=== PATIENT | male | born 1965 | race Hispanic/Latino ===

== ENCOUNTER 2022-10-22 06:46 | Day surgery (SDC) | payer BC ==
[2022-10-20 15:24] LABS: Absolute Lymphocytes (CBC) 2.5 K/uL (0.7-4.9); Hematocrit 43.8 % (39.6-49.0); Lymphocytes % 30.2 % (15.3-44.8); MCV 86.8 fL (80-100); MPV 6.8 fL (7.6-11.3); Platelets 283 thou/uL (152-406); RBC Red Blood Cell Count 5.05 M/uL (4.33-5.43)
--- NOTE | 2022-10-20 18:36 | RAD REPORT ---
EXAM DESCRIPTION: RAD - Chest Pa And Lat (2 Views) - 10/20/2022 3:19 pm CLINICAL HISTORY: Pre op pending colonoscopy. Hypertension COMPARISON: 10/17/2010 TECHNIQUE: PA and lateral views of the chest were obtained. FINDINGS: The lungs are clear. Heart size is normal and central vasculature is within normal limits. No pleural effusion or pneumothorax seen. No acute bony finding noted. IMPRESSION: No acute cardiopulmonary process.
--- NOTE | 2022-10-21 18:09 | EKG ---
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
[2022-10-22] MEDS ORDERED: NA CHLORIDE 0.9% 1,000 ML ONE ×2 (07:19→08:57)
[2022-10-22] MEDS ORDERED: LIDOCAINE 1% MPF 5 ML VIAL ONE (07:53)
[2022-10-22] MEDS ORDERED: propofoL 200 MG/20 ML VIAL IV ONE (07:53)
[2022-10-22 09:41] VITALS: BP 128/76; TEMP 97.1; O2SAT 98
--- NOTE | 2022-10-22 14:14 | EKG ---
Test Date: 2022-10-20 Test Time: 15:17:44 Paper [employer]inder: ET MEASUREMENT RESULTS: Intervals: Rate: 78 MI: 164 QRSD: 90 QT: 406 QTc: 462 [place]: P: 39 MI: 164 QRS: 46 T: 88 INTERPRETIVE STATEMENTS: Normal sinus rhythm Prolonged QT Abnormal ECG Compared to ECG 10/17/2010 18:04:14 Prolonged QT interval now present Electronically Signed On 10-22-22 14:12:07 CDT by Srikanth Levine
== END 2022-10-22 09:25 | disposition home or self-care (01) ==
LOC: OR 06:46
PROVIDERS: ATTEND Surgery
PROC: 0DJD8ZZ Inspection of Lower Intestinal Tract, Via Natural or Artificial Opening Endoscopic (ICD-10-PCS; principal; 2022-10-22 08:30)
DX: Z12.11 Encounter for screening for malignant neoplasm of colon (principal); N42.9 Disorder of prostate, unspecified
CPT/HCPCS: 93005 ×2; 85025; 80048; 36415 ×2; 82565; 82947 ×2; 71046; 45378; J2704; J2001; J7030 ×2